=== PATIENT | female | born 1985 | race Caucasian/White ===

== ENCOUNTER 2016-11-08 20:35 | Emergency (ER) | payer OTHER ==
[~2016-11-08] VITALS: Ht 157.5 cm; Wt 105.4 kg
[~2016-11-08 20:35] MED LIST: ALBUTEROL SULF8.5 GM IH; ATARAX,VISTARIL25 MG PO; ATIVAN1 MG PO; BACTRIM,SEPT1 TABLET PO; CLINDAMYCIN HC300 MG PO; FLAGYL500 MG PO; FLEXERIL10 MG PO; HYDROCODON-ACE1 EAC8 PO; KEFLEX500 MG PO; KENALOG,ARISTOC15 G2 TP; MEDROL DOSEPAK4 MG PO; MELOXICAM15 MG PO; MOTRIN600 MG PO; NAPROSYN500 MG PO; NAPROXEN500 MG PO; NOHOMEMEDS; NORCO 5/3251 TABLET PO; PEN-VEE K,VEET500 MG PO; PERCOCET 10/1 TABLET PO; PERCOCET 5/31 TABLET PO; PREDNISONE50 MG PO; PROMETHAZINE HC25 M1 PO; REGLAN10 MG PO; REGLAN5 MG PO; TYLENOL WITH C1 EACH PO; VICODIN,LORT1 TABLET PO; XANAX0.5 MG PO; XANAX1 MG PO; ZANTAC150 MG PO; ZANTAC300 MG PO; ZITHROMAX TRI-500 MG PO; ZOFRAN ODT8 MG PO; ZYRTEC10 M3 PO
[2016-11-08 21:49] LABS: ADD MIUA? NO; BILIRUBIN NEGATIVE; BLOOD NEGATIVE; COLOR YELLOW ((YELLOW)); GLUCOSE (STRIP) NEGATIVE; KETONES NEGATIVE; LEUKOCYTES NEGATIVE; NITRITE NEGATIVE; PROTEIN (STRIP) NEGATIVE; SPECIFIC GRAVITY 1.019 (1.000-1.030); UROBILINOGEN 0.2 MG/DL (0.2-1.0)
[2016-11-08] MEDS ORDERED: FLEXERIL5 MG PO (22:36)
[2016-11-08] MEDS ORDERED: NORCO 5/3251 TABLET PO (22:36)
[2016-11-08 22:43] VITALS: BP 128/93
== END 2016-11-08 22:44 | disposition home or self-care (01) ==
LOC: EME 20:35 → RME 20:35
PROVIDERS: Physician Assistant
DX: M54.5 Low back pain (principal); Z88.5 Allergy status to narcotic agent; Z88.6 Allergy status to analgesic agent; Z88.8 Allergy status to other drugs, medicaments and biological substances
CPT/HCPCS: 81003; 99281; 99283

== ENCOUNTER 2017-04-29 12:35 | Emergency (ER) | payer OTHER ==
[~2017-04-29] VITALS: Ht 160 cm; Wt 95.9 kg
[~2017-04-29 12:35] MED LIST changes: +FLEXERIL5 MG PO
[2017-04-29] MEDS ORDERED: MOTRIN800 MG PO (14:06)
[2017-04-29] MEDS ORDERED: PERCOCET 5/31 TABLET PO (14:06)
[2017-04-29 14:52] VITALS: BP 126/90
== END 2017-04-29 14:52 | disposition home or self-care (01) ==
LOC: EME 12:35
DX: S93.402A Sprain of unspecified ligament of left ankle, initial encounter (principal); X58.XXXA Exposure to other specified factors, initial encounter; Z88.8 Allergy status to other drugs, medicaments and biological substances
CPT/HCPCS: 73610; 99281; 99284

== ENCOUNTER 2017-12-31 13:04 | Day surgery (SDC) | payer OTHER ==
[~2017-12-31] VITALS: Ht 158.8 cm; Wt 90.7 kg
[~2017-12-31 13:04] MED LIST changes: +MOTRIN800 MG PO
[2017-12-31 14:01] VITALS: BP 115/67
[2017-12-31 20:32] VITALS: BP 123/67
[2017-12-31 21:00] VITALS: BP 125/76
== END 2017-12-31 21:05 | disposition home or self-care (01) ==
LOC: SDC
PROC: 0UT74ZZ Resection of Bilateral Fallopian Tubes, Percutaneous Endoscopic Approach (ICD-10-PCS; principal; 2017-12-31)
PROC: 04L Lower Arteries, Occlusion (ICD-10-PCS; principal; 2017-12-31)
PROC: 0UT94ZZ Resection of Uterus, Percutaneous Endoscopic Approach (ICD-10-PCS; principal; 2017-12-31)
PROC: 0TJB8ZZ Inspection of Bladder, Via Natural or Artificial Opening Endoscopic (ICD-10-PCS; principal; 2017-12-31)
PROC: 0DNW4ZZ Release Peritoneum, Percutaneous Endoscopic Approach (ICD-10-PCS; principal; 2017-12-31)
DX: N94.6 Dysmenorrhea, unspecified (principal); N87.9 Dysplasia of cervix uteri, unspecified; K66.0 Peritoneal adhesions (postprocedural) (postinfection); Z88.5 Allergy status to narcotic agent; F17.210 Nicotine dependence, cigarettes, uncomplicated
CPT/HCPCS: 87641; 88307; J0131; J0690; J1100; J1170; J2250; J2405; J2710; J3010; J7643